=== PATIENT | female | born 1950 | race Two or more races ===

== ENCOUNTER 2023-10-13 13:48 | Outpatient (CLI) | payer OTHER | END 2023-10-13 13:56 | disposition home or self-care (01) | LOC: RAD 13:48 | PROVIDERS: ATTEND Orthopaedic Surgery | DX: M25.551 Pain in right hip (principal) ==

== ENCOUNTER 2024-02-21 02:24 | Emergency (ER) | payer OTHER ==
[~2024-02-21] VITALS: Ht 154.9 cm; Wt 61.2 kg
[2024-02-21] MEDS ORDERED: ALPRAZOLAM1 MG PO (02:37)
[2024-02-21] MEDS ORDERED: ATARAX25 MG PO (02:37)
[2024-02-21] MEDS ORDERED: GABAPENTIN600 MG PO (02:37)
[2024-02-21] MEDS ORDERED: ACETAMINOPHEN WITH CODEINE 1 UDTAB TABLET PO STA (03:09)
[2024-02-21] MEDS ORDERED: KETOROLAC TROMETHAMINE 60 MG VIAL IM STA (03:09)
[2024-02-21] MEDS ORDERED: KETOROLAC TROMETHAMINE 60 MG VIAL IM ONE (03:14)
== END 2024-02-21 10:26 | disposition home or self-care (01) ==
LOC: ER 02:24
DX: S70.02XA Contusion of left hip, initial encounter (principal); W18.39XA Other fall on same level, initial encounter; Y93.89 Activity, other specified; Y92.018 Other place in single-family (private) house as the place of occurrence of the external cause; S80.02XA Contusion of left knee, initial encounter
CPT/HCPCS: 73502; 73551; 73560; 96372; 99283; J1885

== ENCOUNTER 2024-03-08 14:27 | Outpatient (CLI) | payer OTHER ==
[~2024-03-08 14:27] MED LIST: ALPRAZOLAM1 MG PO; ATARAX25 MG PO; GABAPENTIN600 MG PO
== END 2024-03-08 14:38 | disposition home or self-care (01) ==
LOC: TOM 14:27
PROVIDERS: ATTEND Orthopaedic Surgery
DX: M25.552 Pain in left hip (principal)

== ENCOUNTER 2024-03-08 16:24 | Inpatient (IN) | payer OTHER ==
[~2024-03-08] VITALS: Ht 152.4 cm; Wt 61.2 kg
--- NOTE | 2024-03-08 16:34 | NUR ---
PTE ALERTA Y ORIENTADA X3 FUE REFERIDA POR EL DR JENISE KAUR PARA ADMISION POR DOLOR EN LA CADERA EN EL LADO HIRA DESDE HACE UNOS BAKER. SE LE CAIO S/V Y SE UBICA
--- NOTE | 2024-03-08 17:35 | NUR ---
PTE FEMENINA EVALUADA POR . RN FAJARDO ORIENTA SOBRE ORDEN DE [place] REFIERE COMPRENDER. COLECTA MUESTRAS DE LABORATORIOS, BAJO MEDIDAS ASEPTICAS. NOTIFICA A RADIOLOGIA PARA XRAY PENDIENTES Y REALIZA EKG.
[2024-03-08 17:56] LABS: HEMATOCRIT 38.8 % (36.0-45.00); HEMOGLOBIN 13.2 g/dL (12.0-15.00); MEAN CELL VOLUME 83.5 fL (80.00-100.00); MEAN CORPUSCULAR HEMOGLOBIN 28.4 pg (27.00-32.0); PLATELET COUNT 379 K/uL (150-450); RED BLOOD COUNT 4.65 M/uL (4.00-6.00); RED CELL DISTRIBUTION WIDTH 13.2 % (11.5-14.5)
[2024-03-08 18:16] LABS: PARTIAL THROMBOPLASTIN TIME 27.3 SECONDS (22.0-34.0); PROTHROMBIN TIME 10.9 SECONDS (9.0-11.5)
[2024-03-08 18:22] LABS: ALBUMIN 3.7 gm/dL (3.4-5.0); BILIRUBIN TOTAL 0.46 mg/dL (0.3-1.2); CALCIUM 9.4 mg/dL (8.5-10.1); CREATININE SERUM 0.55 mg/dL (0.55-1.02); GFR 108.34; GLOBULINA 4.2 G/DL (2.4-3.5); POTASSIUM 3.54 mEq/L (3.5-5.1); TOTAL PROTEIN 7.9 gm/dL (6.4-8.2)
[2024-03-08] MEDS ORDERED: 0.9 % SODIUM CHLORIDE 1,000 ML IV SCH (18:30)
[2024-03-08] MEDS ORDERED: hydrOXYzine HCL 50 MG TABLET PO SCH (18:39)
[2024-03-08] MEDS ORDERED: ACETAMINOPHEN 500 MG GEL..CAP PO PRN (18:45)
[2024-03-08] MEDS ORDERED: OxyCODONE HCL/APAP UD (PERCOCET) PO PRN (18:45)
[2024-03-08 19:50] LABS: COL EPI 113 SECONDS (82-175)
[2024-03-08 19:50] LABS: PH,URINE 6.5 (5.0-8.0); URINE APPEARANCE Clear; URINE BILIRRUBIN Negative (NEGATIVE); URINE BLOOD Negative; URINE COLOR Yellow; URINE GLUCOSE Negative (NEGATIVE); URINE KETONE Negative (NEGATIVE); URINE LEUKOCYTE Negative; URINE NITRATE Negative; URINE PROTEIN Negative (NEGATIVE); URINE UROBILINOGEN 0.2 E.U./dl
[2024-03-08 19:54] LABS: URINE BACTERIA 62.9 uL (0.0-1933); URINE EPITHELIAL CELLS 9.2 uL (0.0-38.8); URINE RBC 9.9 uL (0.0-20.8); URINE WBC 29.3 uL (0.0-23.2)
[2024-03-08 20:12] LABS: URINE CAST 0.15 uL (0.0-1.40)
[2024-03-08] MEDS ORDERED: ALPRAzolam 1 MG TABLET PO SCH (21:00)
[2024-03-08 21:51] VITALS: BP 134/58
[2024-03-09 02:08] VITALS: BP 90/60; O2SAT 98
[2024-03-09] MEDS ORDERED: Duloxetine HCl 60 MG CAPSULE.DR PO SCH (09:00)
[2024-03-09] MEDS ORDERED: FAMOTIDINE/PF 20 MG in 0.9 % SODIUM CHLORIDE 8 ML IV PUSH SCH (09:00)
[2024-03-09] MEDS ORDERED: hydrOXYzine HCL 50 MG TABLET PO SCH (09:00)
[2024-03-09] MEDS ORDERED: GABAPENTIN 600 MG TABLET PO SCH (09:00)
[2024-03-09 09:01] VITALS: BP 115/59; O2SAT 98
[2024-03-09] MEDS ORDERED: FAMOTIDINE/PF 20 MG/2 ML VIAL ONE (09:05)
[2024-03-09] MEDS ORDERED: TRANEXAMIC ACID 100MG/1ML (1000MG) AMPUL IV ONE (13:22)
[2024-03-09] MEDS ORDERED: CEFAZOLIN SODIUM 1,000 MG VIAL ONE (13:22)
[2024-03-09] MEDS ORDERED: POLYMYXIN B SULFATE 500,000 U VIAL ONE (13:23)
[2024-03-09] MEDS ORDERED: VANCOMYCIN HCL 1,000 MG VIAL ONE (13:24)
[2024-03-09] MEDS ORDERED: ISOPROPYL ALCOHOL 30 ML OUNCE TOP ONE (13:32)
[2024-03-09] MEDS ORDERED: CEFTRIAXONE SODIUM 2,000 MG VIAL ONE (13:40)
[2024-03-09] MEDS ORDERED: MEPERIDINE HCL/PF 50 MG/ML VIAL IM PRN (17:30)
[2024-03-09] MEDS ORDERED: ONDANSETRON 4 MG TAB.RAPDIS PO PRN (17:30)
[2024-03-09] MEDS ORDERED: SODIUM CHLORIDE 0.45 % 1,000 ML IV SCH (17:30)
[2024-03-09] MEDS ORDERED: ONDANSETRON HCL 2 MG/ML VIAL IV PRN (17:30)
[2024-03-09] MEDS ORDERED: TRAMADOL HCL 50 MG TABLET PO PRN (17:30)
[2024-03-09] MEDS ORDERED: PROMETHAZINE HCL 50 MG/ML AMPUL IM PRN (17:30)
[2024-03-09] MEDS ORDERED: PANTOPRAZOLE SODIUM 40 MG TABLET.DR PO SCH (17:34)
[2024-03-09] MEDS ORDERED: ACETAMINOPHEN 325 MG TABLET PO SCH (21:00)
[2024-03-09] MEDS ORDERED: CEFTRIAXONE SODIUM 1,000 MG in 0.9 % SODIUM CHLORIDE 100 ML IV SCH (21:00)
[2024-03-09 22:09] VITALS: BP 135/57
[2024-03-10] MEDS ORDERED: CELECOXIB 200 MG CAPSULE PO SCH ×2 (01:00→17:00)
[2024-03-10 03:21] VITALS: BP 143/59; O2SAT 98
[2024-03-10] MEDS ORDERED: FAMOTIDINE/PF 20 MG/2 ML VIAL ONE (08:10)
[2024-03-10] MEDS ORDERED: RIVAROXABAN 10 MG TAB PO SCH (09:00)
[2024-03-10 10:08] VITALS: BP 130/62
[2024-03-10 10:14] LABS: HEMATOCRIT 33.1 % (36.0-45.00); HEMOGLOBIN 11.2 g/dL (12.0-15.00); MEAN CELL VOLUME 84.9 fL (80.00-100.00); MEAN CORPUSCULAR HEMOGLOBIN 28.7 pg (27.00-32.0); MEAN CORPUSCULAR HGB CONC 33.9 g/dl (32.0-36.0); PLATELET COUNT 269 K/uL (150-450); RED CELL DISTRIBUTION WIDTH 12.6 % (11.5-14.5)
[2024-03-10 18:45] VITALS: BP 90/55; O2SAT 97
[2024-03-10] MEDS ORDERED: CHLORHEXIDINE GLUCONATE 240 ML BOTTLE TOP ONE (18:45)
[2024-03-10] MEDS ORDERED: PRAMOXINE HCL/CALAMINE 180 ML BOTTLE TOP ONE (18:45)
[2024-03-10] MEDS ORDERED: IRON FUM,PS/FOLIC/BCOMP,C NO.9 1 CAP CAPSULE PO SCH (18:54)
[2024-03-10] MEDS ORDERED: SODIUM CL 0.9% 100 ML IV.SOLN IV ONE (20:55)
[2024-03-10 21:15] VITALS: BP 116/57; O2SAT 96
[2024-03-11 00:27] VITALS: BP 118/56; O2SAT 97
[2024-03-11] MEDS ORDERED: EMOLLIENTS 6 OZ BOTTLE TOP SCH (06:33)
[2024-03-11 07:49] LABS: HEMOGLOBIN 10.8 g/dL (12.0-15.00); MEAN CORPUSCULAR HEMOGLOBIN 28.7 pg (27.00-32.0); MEAN CORPUSCULAR HGB CONC 33.8 g/dl (32.0-36.0); PLATELET COUNT 246 K/uL (150-450); RED BLOOD COUNT 3.77 M/uL (4.00-6.00); RED CELL DISTRIBUTION WIDTH 12.5 % (11.5-14.5)
[2024-03-11 08:01] VITALS: BP 124/70; O2SAT 100
[2024-03-11] MEDS ORDERED: SENNA/DOCUSATE SODIUM 1 TAB TABLET PO SCH (09:00)
[2024-03-11] MEDS ORDERED: CHLORHEXIDINE GLUCONATE 15ML BRUSH KIT MM SCH (14:46)
[2024-03-11 16:00] VITALS: BP 120/58; O2SAT 95
[2024-03-11] MEDS ORDERED: CHLORHEXIDINE GLUCONATE 120 ML BOTTLE TOP SCH (17:00)
[2024-03-11] MEDS ORDERED: MUPIROCIN 22 GM OINT..GM TUBE NASAL SCH (17:00)
[2024-03-12] VITALS: BP 126/58
[2024-03-12 00:45] VITALS: BP 108/53; O2SAT 98
[2024-03-12 09:49] LABS: HEMATOCRIT 29.9 % (36.0-45.00); MEAN CELL VOLUME 84.9 fL (80.00-100.00); MEAN CORPUSCULAR HEMOGLOBIN 28.5 pg (27.00-32.0); MEAN CORPUSCULAR HGB CONC 33.6 g/dl (32.0-36.0); PLATELET COUNT 243 K/uL (150-450); RED BLOOD COUNT 3.52 M/uL (4.00-6.00); RED CELL DISTRIBUTION WIDTH 12.6 % (11.5-14.5)
[2024-03-12 10:56] LABS: ALBUMIN 2.4 gm/dL (3.4-5.0); BILIRUBIN TOTAL 0.37 mg/dL (0.3-1.2); CALCIUM 8.4 mg/dL (8.5-10.1); CREATININE SERUM 0.3 mg/dL (0.55-1.02); GFR 218.06; GLOBULINA 3.4 G/DL (2.4-3.5); TOTAL PROTEIN 5.8 gm/dL (6.4-8.2)
[2024-03-12 11:01] LABS: POTASSIUM 2.91 mEq/L (3.5-5.1)
[2024-03-12] MEDS ORDERED: POTASSIUM CHLORIDE 10 MEQ CAPSULE PO NR (11:40)
[2024-03-12] MEDS ORDERED: POTASSIUM CHLORIDE/D5-0.9%NACL 40 MEQ/1,000 ML PIGGYBAG IV NR (13:00)
[2024-03-12] MEDS ORDERED: POTASSIUM CHLORIDE IN WATER 100 ML IV NR (17:00)
[2024-03-12] MEDS ORDERED: SULFAMETHOXAZOLE/TRIMETHOPRIM DS 1 TAB PO SCH (17:00)
[2024-03-12 17:06] VITALS: BP 100/61; O2SAT 98
[2024-03-13] VITALS: BP 107/69; O2SAT 95
[2024-03-13 07:48] LABS: CALCIUM 8.2 mg/dL (8.5-10.1); CREATININE SERUM 0.34 mg/dL (0.55-1.02); GFR 188.73; POTASSIUM 3.67 mEq/L (3.5-5.1)
[2024-03-13 08:00] VITALS: BP 113/66; O2SAT 99
== END 2024-03-13 16:26 | DRG 522 ==
LOC: ER 16:25 → MEDJ 19:01 → SURG 03-10 19:16
PROVIDERS: General Practice; Orthopaedic Surgery; ADMIT Internal Medicine; ATTEND Internal Medicine
PROC: 0SRB02Z Replacement of Left Hip Joint with Metal on Polyethylene Synthetic Substitute, Open Approach (ICD-10-PCS; principal; 2024-03-09 15:00)
DX: S72.092A Other fracture of head and neck of left femur, initial encounter for closed fracture (principal); M16.12 Unilateral primary osteoarthritis, left hip; M25.532 Pain in left wrist; W18.30XA Fall on same level, unspecified, initial encounter; Y93.9 Activity, unspecified; Y92.9 Unspecified place or not applicable; Y99.9 Unspecified external cause status; E78.5 Hyperlipidemia, unspecified; F41.8 Other specified anxiety disorders; F42.4 Excoriation (skin-picking) disorder; E87.6 Hypokalemia; A49.02 Methicillin resistant Staphylococcus aureus infection, unspecified site; Z22.322 Carrier or suspected carrier of Methicillin resistant Staphylococcus aureus